=== PATIENT | female | born 1930 | race Caucasian/White ===

== ENCOUNTER 2017-05-04 21:05 | Inpatient (IN) | payer MEDICARE ==
[~2017-05-04] VITALS: Ht 177.8 cm; Wt 87.1 kg
[~2017-05-04 21:05] MED LIST: APAP/HYDROCODON1 T13 PO; COL100 PO; ECO81 PO; TEG200 PO; Z PO; ZES20 PO
--- NOTE | 2017-05-04 21:24 | NUR ---
PT PRESENTS TO ED WITH C/O "BURNING" CHEST PAIN, NON RADIATING. PT REPORTS PAIN WAS INTERMITTENT X2 WKS AND BECAME CONSTANT TODAY AROUND 1500. PT REPORTS NAUSEA SINCE LAST NIGHT, DENIES ANY V/D. PT DENIES ANY DIZZINESS OR SOB. PT STATES SHE THOUGHT IT WAS HEARTBURN AND TOOK ANTACIDS AT HOME. RESP E/U. NO ACUTE DISTRESS NOTED. BED IN LOW POSITION. CALL LIGHT WITHIN REACH.
[2017-05-04 22:04] LABS: BASOPHIL % 0.4 % (0-2); PLATELET COUNT 217 x10^3mcL (130-400); RED CELL DISTRIBUTION WIDTH 12.9 % (11.5-14.5)
[2017-05-04 22:43] LABS: CALCIUM 9.7 mg/dL (8.5-10.1); CARBON DIOXIDE 27.2 mmol/L (21-32); CHLORIDE SERUM 95 mmol/L (98-107); CREATININE SERUM 1.5 mg/dL (0.6-1.0); GLUCOSE SERUM 96 mg/dL (74-106); POTASSIUM SERUM 4.3 mmol/L (3.5-5.1); SODIUM SERUM 132 mmol/L (136-145)
[2017-05-04 22:48] LABS: ALBUMIN 3.9 g/dL (3.4-5.0); ALKALINE PHOSPHATASE 52 U/L (46-116); ALT/SGPT 24 U/L (14-59); AST/SGOT 27 U/L (15-37); BILIRUBIN TOTAL 0.41 mg/dL (0.20-1.00); TOTAL PROTEIN, SERUM 7.2 g/dL (6.4-8.2)
--- NOTE | 2017-05-04 23:03 | NUR ---
PT UNABLE TO RECALL HOME MEDS. PER PT, WILL HAVE DTR BRING MED LIST IN THE MORNING.
--- NOTE | 2017-05-04 23:16 | NUR ---
REPORT GIVEN TO ROD MAXWELL.
--- NOTE | 2017-05-04 23:25 | NUR ---
REC'D PT FROM ER VIA [facility]. PT IS AAOX4. TELE #27 SR WITH OCC. PVC'S. DENIES PAIN OR DISCOMFORT. LUNG SOUNDS CLEAR. NO SOB NOTED. ABD SOFT. BS ACTIVE X4. DENIES N/V. IV NOTED TO LAC. INTACT AND PATENT. ORIENTED PT TO CALL LIGHT. BED IN LOWEST POSITION. WILL ENDORSE TO PRIMARY RN.
[2017-05-04 23:41] LABS: MAGNESIUM 1.6 mg/dL (1.8-2.4); PHOSPHOROUS 3.9 mg/dL (2.5-4.9)
[2017-05-04 23:44] VITALS: BP 181/71
[2017-05-04 23:53] VITALS: BP 174/65
[2017-05-04 23:53] LABS: FREE T4 1.06 ng/dL (0.76-1.46); FREE THYROXINE INDEX 3.1 ug/dL (1.4-4.5); T4(THYROXINE) 8.1 ug/dL (4.7-13.3)
[2017-05-05 00:23] LABS: T3 TOTAL 0.77 ng/mL
[2017-05-05 02:59] VITALS: BP 146/55
--- NOTE | 2017-05-05 03:06 | NUR ---
ONE TIME DOSE OF LISINOPRIL GIVEN FOR ELEVATED BP. BP AT THIS TIME DOWN TO 146/55, MAP 110, HR 52. PT. RESTING COMFORTABLY. CALL LIGHT WITHIN REACH.
[2017-05-05 05:20] VITALS: BP 146/48
[2017-05-05 06:35] LABS: CARBON DIOXIDE 28.8 mmol/L (21-32); CHLORIDE SERUM 98 mmol/L (98-107); CREATININE SERUM 1.3 mg/dL (0.6-1.0); GLUCOSE SERUM 89 mg/dL (74-106); POTASSIUM SERUM 4.7 mmol/L (3.5-5.1); SODIUM SERUM 131 mmol/L (136-145)
--- NOTE | 2017-05-05 06:44 | NUR ---
ABD. US COMLETED. NO C/O CHESTPAIN THIS MORNING. PT. SR W/ BUNDLE BRANCH. IVF INFUSING WELL, CALL LIGHT WITHIN REACH.
--- NOTE | 2017-05-05 07:30 | NUR ---
PATIENT IS SITTING UP IN BED, AWAKE ALERT AND ORIENTED. DENIES ANY CHEST PAIN OR DISCOMFORT. TELE 27 WITH BBB AND OCCAS PVC. IVF INFUSING WELL TO LEFT A/C. PATIENT'S LEFT KNEE NOTED TO BE SWOLLEN, PER PATIENT SHE HAS ARTHRITIS. SCD'S IN PLACE. LUNGS CLEAR ON ROOM AIR. ABD SOFT, BOWEL SOUNDS ACTIVE. DENIES ANY N/V/D. VODING WELL. PAITENT INSTRUCTED TO CALL FOR ASSIST TO THE BATHROOM. NO ACUTE DISTRESS NOTED. WILL CONTINUE TO MONITOR.
--- NOTE | 2017-05-05 08:40 | NUR ---
DR LARA AND MEDICAL TEAM INTO SEE PATIENT AND DISCUSS PLAN OF CARE.
[2017-05-05 09:29] VITALS: BP 157/57
--- NOTE | 2017-05-05 12:39 | NUR ---
PATIENT SITTING UP IN BED WITH FAMILY AT BEDSIDE. CONTINUES TO DENY ANY CHEST PAIN. PATIENT IS AWAITING TO BE DISCHARGED HOME TODAY.
[2017-05-05 13:00] VITALS: BP 136/52
[2017-05-05 13:11] LABS: UA SPECIFIC GRAVITY <=1.005 (1.005-1.035); microscopic required? YES
[2017-05-05 13:12] LABS: urine erythrocyte NEGATIVE (NEGATIVE)
[2017-05-05] MEDS ORDERED: PRI20 PO (13:23)
[2017-05-05 13:26] VITALS: BP 136/52
[2017-05-05 13:38] LABS: AMPHETAMINE QUAL UR NONE DETECTED (NEG <=1000)
[2017-05-05] MEDS ORDERED: LEVAQUIN750 MG PO ×2 (13:43→13:44)
--- NOTE | 2017-05-05 14:18 | NUR ---
PATIENT READY FOR D/C HOME. HL AND TELE DC'D. DISCHARGE INSTRUCTIONS GIVEN. PERSONAL BELONGINGS LIST SIGNED. MEDICATION AND GERD EDUCATION PROVIDED. CONDITITON APPEARS STABLE AT THIS TIME.
== END 2017-05-05 14:21 | disposition home or self-care (01) | DRG 391 ==
LOC: ED 21:05 → DU 22:53
PROVIDERS: Emergency Medicine; ADMIT Family Medicine
DX: K21.9 Gastro-esophageal reflux disease without esophagitis (principal); N17.0 Acute kidney failure with tubular necrosis; N39.0 Urinary tract infection, site not specified; E87.1 Hypo-osmolality and hyponatremia; E86.0 Dehydration; E83.42 Hypomagnesemia; E78.5 Hyperlipidemia, unspecified; I44.0 Atrioventricular block, first degree; I25.2 Old myocardial infarction; I10 Essential (primary) hypertension; Z68.28 Body mass index [BMI] 28.0-28.9, adult; Z79.82 Long term (current) use of aspirin
CPT/HCPCS: 83880; 84439; J2270; J2405; J7030; Q0092

== ENCOUNTER 2018-04-12 04:37 | Inpatient (IN) | payer MEDICARE ==
[~2018-04-12] VITALS: Ht 177.8 cm; Wt 81.6 kg
[~2018-04-12 04:37] MED LIST changes: +LEVAQUIN750 MG PO; +PRI20 PO
[2018-04-12 04:40] VITALS: Ht 177.8 cm; Wt 81.6 kg
[2018-04-12 05:14] LABS: CALCIUM 8.8 mg/dL (8.5-10.1); CARBON DIOXIDE 26.5 mmol/L (21-32); CHLORIDE SERUM 97 mmol/L (98-107); CREATININE SERUM 1.3 mg/dL (0.6-1.0); GLUCOSE SERUM 96 mg/dL (74-106); POTASSIUM SERUM 3.6 mmol/L (3.5-5.1); SODIUM SERUM 133 mmol/L (136-145)
[2018-04-12 05:18] LABS: ALBUMIN 3.6 g/dL (3.4-5.0); ALKALINE PHOSPHATASE 58 U/L (46-116); ALT/SGPT 15 U/L (14-59); AST/SGOT 22 U/L (15-37); BILIRUBIN TOTAL 0.3 mg/dL (0.20-1.00); TOTAL PROTEIN, SERUM 6.6 g/dL (6.4-8.2)
[2018-04-12 05:21] LABS: BASOPHIL % 0.3 % (0-2); PLATELET COUNT 254 x10^3mcL (130-400); RED CELL DISTRIBUTION WIDTH 13.1 % (11.5-14.5)
[2018-04-12] MEDS ORDERED: TEGRETOL200 MG PO (05:46)
[2018-04-12] MEDS ORDERED: NAPROXEN375 MG PO (05:48)
[2018-04-12] MEDS ORDERED: HCTZ/LISINOPRIL1 TA1 PO (05:49)
[2018-04-12 08:53] VITALS: BP 178/65
[2018-04-12 09:45] VITALS: BP 172/69
[2018-04-12 13:59] VITALS: BP 179/65
[2018-04-12 16:47] VITALS: BP 147/60
[2018-04-12 21:15] VITALS: BP 145/58
[2018-04-13] VITALS (7 sets, daily range): BP systolic 104–179; BP diastolic 51–78
[2018-04-13 06:22] LABS: CALCIUM 8.3 mg/dL (8.5-10.1); CARBON DIOXIDE 26.4 mmol/L (21-32); CHLORIDE SERUM 99 mmol/L (98-107); CREATININE SERUM 1.4 mg/dL (0.6-1.0); GLUCOSE SERUM 91 mg/dL (74-106); POTASSIUM SERUM 4.3 mmol/L (3.5-5.1); SODIUM SERUM 133 mmol/L (136-145)
[2018-04-13 06:52] LABS: BASOPHIL % 0.2 % (0-2); PLATELET COUNT 237 x10^3mcL (130-400); RED CELL DISTRIBUTION WIDTH 13.5 % (11.5-14.5)
[2018-04-13 21:09] LABS: microscopic required? YES; urine erythrocyte 3+ (NEGATIVE)
[2018-04-14 00:25] LABS: UA SPECIFIC GRAVITY 1.015 (1.005-1.035); microscopic required? YES; urine erythrocyte 3+ (NEGATIVE)
[2018-04-14 05:44] VITALS: BP 136/50
[2018-04-14 06:28] LABS: BASOPHIL % 0.2 % (0-2); PLATELET COUNT 207 x10^3mcL (130-400); RED CELL DISTRIBUTION WIDTH 13.4 % (11.5-14.5)
[2018-04-14 06:34] LABS: CARBON DIOXIDE 25.7 mmol/L (21-32); CHLORIDE SERUM 99 mmol/L (98-107); CREATININE SERUM 1.3 mg/dL (0.6-1.0); GLUCOSE SERUM 100 mg/dL (74-106); SODIUM SERUM 132 mmol/L (136-145)
[2018-04-14 08:53] VITALS: BP 150/50
[2018-04-14 17:34] VITALS: BP 162/60
[2018-04-14 21:12] VITALS: BP 140/54
[2018-04-15 05:45] VITALS: BP 144/52
[2018-04-15] MEDS ORDERED: BEN25 PO (09:07)
[2018-04-15] MEDS ORDERED: ULT50 PO (09:07)
[2018-04-15 09:34] VITALS: BP 138/47
[2018-04-15 10:21] VITALS: BP 138/47
== END 2018-04-15 12:39 | DRG 470 ==
LOC: ED 04:37 → MU 06:18
PROVIDERS: Emergency Medicine; Internal Medicine; Internal Medicine Pulmonary Disease; Neuromusculoskeletal Medicine, Sports Medicine
PROC: 0SRR0J9 Replacement of Right Hip Joint, Femoral Surface with Synthetic Substitute, Cemented, Open Approach (ICD-10-PCS; principal; 2018-04-13 13:30)
DX: S72.011A Unspecified intracapsular fracture of right femur, initial encounter for closed fracture (principal); N39.0 Urinary tract infection, site not specified; M19.072 Primary osteoarthritis, left ankle and foot; M19.071 Primary osteoarthritis, right ankle and foot; I12.9 Hypertensive chronic kidney disease with stage 1 through stage 4 chronic kidney disease, or unspecified chronic kidney disease; N18.3 Chronic kidney disease, stage 3 (moderate); I25.10 Atherosclerotic heart disease of native coronary artery without angina pectoris; Z68.25 Body mass index [BMI] 25.0-25.9, adult; W01.0XXA Fall on same level from slipping, tripping and stumbling without subsequent striking against object, initial encounter; Y92.009 Unspecified place in unspecified non-institutional (private) residence as the place of occurrence of the external cause
CPT/HCPCS: 97110-GP; 97116-GP; 97530-GP; 97535-GP; C1776; J0690; J0696; J1650; J2250; J2405; J3010; J7040; J7120; Q0092; Q0163

== ENCOUNTER 2018-07-13 09:58 | Emergency (ER) | payer MEDICARE ==
[~2018-07-13] VITALS: Ht 177.8 cm; Wt 85.7 kg
[~2018-07-13 09:58] MED LIST changes: +BEN25 PO; +HCTZ/LISINOPRIL1 TA1 PO; +NAPROXEN375 MG PO; +TEGRETOL200 MG PO; +ULT50 PO
[2018-07-13 10:00] VITALS: Ht 177.8 cm; Wt 85.7 kg
[2018-07-13 11:05] LABS: BASOPHIL % 0.9 % (0-2); PLATELET COUNT 216 x10^3mcL (130-400); RED CELL DISTRIBUTION WIDTH 13.2 % (11.5-14.5)
[2018-07-13 11:14] LABS: ALBUMIN 3.6 g/dL (3.4-5.0); CALCIUM 9.1 mg/dL (8.5-10.1); CARBON DIOXIDE 24.9 mmol/L (21-32); CHLORIDE SERUM 105 mmol/L (98-107); CREATININE SERUM 1.4 mg/dL (0.6-1.0); GLUCOSE SERUM 90 mg/dL (74-106); POTASSIUM SERUM 4.1 mmol/L (3.5-5.1); SODIUM SERUM 139 mmol/L (136-145)
[2018-07-13 11:38] LABS: microscopic required? YES; urine erythrocyte NEGATIVE (NEGATIVE)
[2018-07-13 11:41] LABS: CK-MB 7.6 ng/mL (0-3.6)
[2018-07-13 11:51] LABS: ALKALINE PHOSPHATASE 70 U/L (46-116); ALT/SGPT 25 U/L (14-59); AST/SGOT 22 U/L (15-37); BILIRUBIN TOTAL 0.68 mg/dL (0.20-1.00); TOTAL PROTEIN, SERUM 7.1 g/dL (6.4-8.2)
[2018-07-13 12:39] VITALS: BP 162/84
== END 2018-07-13 12:39 | disposition home or self-care (01) ==
LOC: ED 09:58
PROVIDERS: Emergency Medicine
DX: N39.0 Urinary tract infection, site not specified (principal); I50.9 Heart failure, unspecified; E78.00 Pure hypercholesterolemia, unspecified; I11.0 Hypertensive heart disease with heart failure; Z90.49 Acquired absence of other specified parts of digestive tract; Z90.710 Acquired absence of both cervix and uterus; Z90.89 Acquired absence of other organs; Z98.890 Other specified postprocedural states; Z88.5 Allergy status to narcotic agent
CPT/HCPCS: J0696; J7030; Q0092